=== PATIENT | male | born 1940 | race Caucasian/White ===

== ENCOUNTER 2018-07-03 18:52 | Emergency (ER) | payer OTHER, BC ==
--- NOTE | 2018-07-03 19:10 | PDOC ---
History of Present Illness - General History Source: Patient Exam Limitations: No Limitations - History of Present Illness Initial Comments: 07/03/18 20:11 The patient is a 77 year old male, with a significant PMH of right side sciatica , who presents to the emergency department complaining of sciatica pain that worsened today. The patient states he was diagnosed with sciatica 3 weeks ago and was given a cortisone shot. Today, patient notes excruciating pain to the right hip, radiating to the outer portion of the right leg. He reports no relief with TENS unit, Tylenol, ice or lidocaine cream. The patient also mentions he recently drove back up from [place] and thinks that might have exacerbated the pain. The patient denies numbness and tingling. Denies any falls or trauma. Denies chest pain, shortness of breath, headache and dizziness. Allergies: NKDA Past surgical history: None reported Social history: None reported PCP: None reported <Tiara Dove - Last Filed: 07/03/18 20:10> <Cesia James - Last Filed: 07/04/18 02:28> - General Chief Complaint: Pain Stated Complaint: RT HIP PAIN Time Seen by Provider: 07/03/18 19:05 Past History <Tiara Dove - Last Filed: 07/03/18 20:10> - Past Medical History COPD: No <Ceisa James - Last Filed: 07/04/18 02:28> - Past Medical History Allergies/Adverse Reactions: Allergies Allergy/AdvReac Type Severity Reaction Status Date / Time No Known Allergies Allergy Verified 07/03/18 18:53 Home Medications: Ambulatory Orders Acetaminophen [Tylenol -] 1,000 mg PO Q6H 07/03/18 Doxazosin Mesylate [Cardura] 1 mg PO HS 07/03/18 Lidocaine 5% Patch [Lidoderm -] 1 patch TP DAILY #20 patch 07/03/18 Lisinopril 5 mg PO DAILY 07/03/18 Review of Systems - Review of Systems Able to Perform ROS?: Yes Comments:: 07/03/18 20:11 GENERAL/CONSTITUTIONAL: No fever or chills. No weakness. HEAD, EYES, EARS, NOSE AND THROAT: No change in vision. No ear pain or discharge. No sore throat. CARDIOVASCULAR: No chest pain or shortness of breath. RESPIRATORY: No cough, wheezing, or hemoptysis. GASTROINTESTINAL: No nausea, vomiting, diarrhea or constipation. GENITOURINARY: No dysuria, frequency, or change in urination. MUSCULOSKELETAL:+Right hip pain SKIN: No rash NEUROLOGIC: No headache, vertigo, loss of consciousness, or change in strength/ sensation. ENDOCRINE: No increased thirst. No abnormal weight change. HEMATOLOGIC/LYMPHATIC: No anemia, easy bleeding, or history of blood clots. ALLERGIC/IMMUNOLOGIC: No hives or skin allergy. <Tiara Dove - Last Filed: 07/03/18 20:10> *Physical Exam - Vital Signs Last Vital Signs Temp Pulse Resp BP Pulse Ox 98.3 F 81 20 166/86 100 07/03/18 18:52 07/03/18 18:52 07/03/18 18:52 07/03/18 18:52 07/03/18 18:52 <Tiara Dove - Last Filed: 07/03/18 20:10> - Physical Exam Comments: GENERAL: Adult man, alert and oriented 3, in moderate distress secondary to right buttock/posterior thigh pain HEAD: Normal with no signs of trauma. EYES: PERRLA, EOMI, sclera anicteric, conjunctiva clear. EXTREMITIES: Pain with straight leg raising on right at 20. No leg edema or tenderness on palpation. Remainder of extremity exam is normal NEUROLOGICAL: Cranial nerves II through XII grossly intact. Normal speech. No focal neurological deficits. SKIN: Warm, Dry, normal turgor, no rashes or lesions noted. <Cesia James - Last Filed: 07/04/18 02:28> Moderate Sedation - Procedure Monitoring Vital Signs: Procedure Monitoring Vital Signs Temperature 98.3 F 07/03/18 18:52 Pulse Rate 81 07/03/18 18:52 Respiratory Rate 20 07/03/18 18:52 Blood Pressure 166/86 07/03/18 18:52 O2 Sat by Pulse Oximetry (%) 100 07/03/18 18:52 <Tiara Dove - Last Filed: 07/03/18 20:10> ED Treatment Course - Medications Given in the ED: ED Medications Discontinued Medications Generic Name Dose Route Start Last Admin Trade Name Freq PRN Reason Stop Dose Admin Ketorolac Tromethamine 60 mg 07/03/18 19:26 07/03/18 19:33 Toradol Injection - IM 07/03/18 19:27 60 mg ONCE ONE Administration <Tiara Dove - Last Filed: 07/03/18 20:10> Progress Note - Progress Note Progress Note: Documentation has been prepared under my direction and personally reviewed by me in its entirety. I attest that this documented accurately reflects all work, treatment, procedures and medical decision making performed by me. <Cesia James - Last Filed: 07/04/18 02:28> Medical Decision Making - Medical Decision Making As noted above, this 77-year-old man with a history of right lower extremity sciatica diagnosed a few weeks ago presents with flareup of his sciatic pain after driving from [place] to this area today. The pain at that the patient describes is consistent with his sciatic pain and he has had no new trauma to the area. The patient has been using topical creams as well as over-the- counter aspirin as needed for his pain but has had persistent buttock and posterior thigh pain on the right side. Exam as noted. The patient was given Toradol 60 mg IM now. Patient will be discharged with prescription for lidocaine patch 5% to be used daily (12 hours on/12 hours off) as needed for sciatic pain. He states that he has used aspirin rather than nonsteroidal anti-inflammatory medications in the past because aspirin has been more effective. It was suggested that he always take any of these medications with food than on a empty stomach. He should return to the ER if he has persistent severe pain/numbness/weakness in his leg. Otherwise, he should plan to follow-up with his doctor within 5-7 days. <Cesia James - Last Filed: 07/04/18 02:28> *DC/Admit/Observation/Transfer - Attestations Scribe Attestion: 07/03/18 20:12 Documentation prepared by Tiara Dove, acting as medical detailist for Cesia James MD. <Tiara Dove - Last Filed: 07/03/18 20:10> <Cesia James - Last Filed: 07/04/18 02:28> Diagnosis at time of Disposition: Sciatica of right side - Discharge Dispostion Disposition: HOME Condition at time of disposition: Good - Prescriptions Prescriptions: Lidocaine 5% Patch [Lidoderm -] 1 patch TP DAILY #20 patch - Patient Instructions Printed Discharge Instructions: Sciatica Additional Instructions: Naproxen/Ibuprofen/Aspirin as needed for pain; Take with food Lidocaine 5% patch to area daily as needed(leave in place for 12 hours) Return to ER if you have severe, persistent pain or have numbness/weakness in leg followup with your doctor within 5-7 days
[2018-07-03 19:14] VITALS: BP 166/86; PULSE 81; TEMP 98.3; BMI 27.3
[2018-07-03] MEDS ORDERED: KETOROLAC TROMETHAMINE 60 MG/2 ML VIAL IM ONE (19:26)
[2018-07-03] MEDS ORDERED: KETOROLAC TROMETHAMINE 60 MG/2 ML VIAL ONE (19:32)
== END 2018-07-03 19:51 | disposition home or self-care (01) ==
LOC: FER 18:52
PROC: 3E0233Z Introduction of Anti-inflammatory into Muscle, Percutaneous Approach (ICD-10-PCS; principal; 2018-07-03)
DX: M54.31 Sciatica, right side (principal)
CPT/HCPCS: 99282-25